=== PATIENT | female | born 1990 | race Caucasian/White ===

== ENCOUNTER 2023-02-01 07:21 | Emergency (ER) | payer OTHER ==
[~2023-02-01] VITALS: Ht 160 cm; Wt 113.6 kg
[2023-02-01] MEDS ORDERED: METH5SOL3 PO (07:24)
[2023-02-01 07:25] VITALS: BP 143/79
== END 2023-02-01 08:20 | disposition home or self-care (01) ==
LOC: EMS 07:26
DX: F11.90 Opioid use, unspecified, uncomplicated (principal); F12.90 Cannabis use, unspecified, uncomplicated; Z98.890 Other specified postprocedural states
CPT/HCPCS: 99281; Z7502